=== PATIENT | female | born 1945 | race Caucasian/White ===

== ENCOUNTER 2020-08-05 01:00 | Outpatient (NON) | payer MEDICARE, SELFPAY ==
[2020-08-05 19:53] LABS: SARS-CoV-2 RNA PCR Negative
== END 2020-08-05 01:01 ==
DX: R09.89 Other specified symptoms and signs involving the circulatory and respiratory systems (principal); Z20.828 Contact with and (suspected) exposure to other viral communicable diseases
CPT/HCPCS: 87635; C9803; U0003

== ENCOUNTER 2021-01-25 10:21 | Outpatient (NON) | payer MEDICARE, SELFPAY | END 2021-01-25 10:22 | PROVIDERS: Visit Provider Internal Medicine | DX: L02.92 Furuncle, unspecified (principal) | CPT/HCPCS: 87070; 87075; 87077; 87186; 87205 ==